=== PATIENT | female | born 1940 | race Caucasian/White ===

== ENCOUNTER 2023-07-19 23:11 | Emergency (ER) | payer OTHER, MEDICARE ==
[2023-07-19] MEDS ORDERED: Boostrix 0.5 ML (Tdap) VIAL (>/=7 yrs of age) ONE (23:35)
[2023-07-19] MEDS ORDERED: Midazolam HCl 2 mg/2 ml Vial ONE ×2 (23:39→23:50)
[2023-07-20] MEDS ORDERED: Midazolam HCl 2 mg/2 ml Vial ONE (00:42)
== END 2023-07-20 01:35 | disposition home or self-care (01) ==
LOC: NAV ERS 23:11
DX: S01.01XA Laceration without foreign body of scalp, initial encounter (principal); S09.90XA Unspecified injury of head, initial encounter; F03.90 Unspecified dementia, unspecified severity, without behavioral disturbance, psychotic disturbance, mood disturbance, and anxiety; F20.9 Schizophrenia, unspecified; F31.9 Bipolar disorder, unspecified; I10 Essential (primary) hypertension; E78.5 Hyperlipidemia, unspecified; Z79.899 Other long term (current) drug therapy; Z23 Encounter for immunization; W01.10XA Fall on same level from slipping, tripping and stumbling with subsequent striking against unspecified object, initial encounter
CPT/HCPCS: 12001; 70450; 71045; 72125; 90471; 90715; J2250